=== PATIENT | female | born 1945 | race Caucasian/White ===

== ENCOUNTER 2021-07-10 14:49 | Outpatient (CLI) | payer MEDICARE, SELFPAY ==
--- NOTE | ~2021-07-10 | XR_ITS ---
XR hand RT min 3V DATE: 07/10/2021 15:19 INDICATION: Right first digit pain for 2 weeks. No injury. TECHNIQUE: 3 views COMPARISON: None FINDINGS: There is diffuse osteopenia. There is severe osteoarthritic change and prominent associated spurring at the first carpometacarpal joint. There is osteoarthritic change of multiple metacarpophalangeal and interphalangeal joints. No fracture or dislocation, periosteal reaction or bone destruction is detected. IMPRESSION: Polyarticular osteoarthritis Diffuse osteopenia Reviewed, dictated and finalized at location A.
== END 2021-07-10 14:50 | disposition home or self-care (01) ==
LOC: CHSIMG 14:57
PROVIDERS: PCP Internal Medicine; Visit Provider Internal Medicine
DX: M79.641 Pain in right hand (principal)
CPT/HCPCS: 73130

== ENCOUNTER 2022-05-05 08:47 | Outpatient (CLI) | payer MEDICARE, SELFPAY ==
--- NOTE | ~2022-05-05 | CT_ITS ---
EXAMINATION: CT abdomen pelvis wo/w con DATE: 05/05/2022 09:49 INDICATION: Abdominal and pelvic pain, hematuria. Atypical urethral cells. TECHNIQUE: Computed tomography (CT) of the abdomen and pelvis was performed without and subsequently with 130 CC Omnipaque 350 intravenous contrast. Automated exposure control and iterative reconstructi on technique were employed. Exam dose: 1594.59 mGy-cm total exam DLP. COMPARISON: None. FINDINGS: Minimal atelectasis at the lung bases. Cardiomegaly. No pericardial or pleural effusion. Small sliding hiatal hernia. The gallbladder is presumably surgically absent. No bile duct dilatation. Normal splenic size, with o ccasional calcified splenic granulomas. No pancreatic mass lesion, calcification or ductal dilatation. No bile duct dilatation. Normal morphology of the adrenal glands. 2.5 mm nonobstructing mid left renal calculus. No other urinary tract calculus or hydroureteronephros is. 5 mm left renal cyst. There is irregularity along the posterior wall of the urinary bladder. Given the history of hematuria , cystoscopic correlation and possible biopsy are recommended. Normal caliber of the abdominal aorta. No intraperitoneal or retroperitoneal or pelvic mass lesion or adenopathy or ascites. Diverticulosis of the sigmoid and to a lesser extent descending and transverse colon; no evidence of diverticulitis. The appendix is not visualized. No bowel obstruction, bowel wall thickening, pneumato sis or intraperitoneal free air. There is mild soft tissue infiltration of the mesenteric fat which may represent mild mesenteric infl ammation. Normal caliber of the abdominal aorta. No intraperitoneal or retroperitoneal or pelvic mass lesion or adenopathy or ascites. The uterus and adnexal areas are unremarkable. 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 IMPRESSION: Prominent irregularity along the posterior wall of the urinary bladder; given the history of hematuria, consider cystoscopy and biopsy if necessary 2.5 mm nonobstructing left renal calculus 5 mm left renal cyst Small sliding hiatal hernia Diverticulosis of the colon; no CT evidence of diverticulitis Mild mesenteric fat soft tissue infiltration, which might represent mild inflammation Reviewed, dictated and finalized at Location A. Reviewed, dictated and finalized at location A. IMPRESSION: Prominent irregularity along the posterior wall of the urinary blad jose elias; given the history of hematuria, consider cystoscopy and biopsy if necessar y 2.5 mm nonobstructing left renal calculus 5 mm left renal cyst Small sliding hiatal hernia Diverticulosis of the colon; no CT evidence of diverticulitis Mild mesenteric fat soft tissue infiltration, which might represent mild inflam mation
[2022-05-05 09:15] LABS: Estimated Glomerular Filt Rate > 60
== END 2022-05-05 08:48 | disposition home or self-care (01) ==
LOC: CHSIMG 08:51
PROVIDERS: PCP Internal Medicine; Visit Provider Nurse Practitioner Family
DX: R10.9 Unspecified abdominal pain (principal); R31.9 Hematuria, unspecified
CPT/HCPCS: 74178; Q9967

== ENCOUNTER 2022-05-06 12:43 | Outpatient (CLI) | payer MEDICARE, SELFPAY ==
--- NOTE | ~2022-05-06 | DEXA_ITS ---
Bone Density Report Name: LEONEL DOUGLAS Age: 77 Sex: Female Ethnicity: White Date of : 1945 Indication: postmenopausal; screening for osteoporosis; height loss; Referring Provider: Tino Klein Study: Bone densitometry was performed. Exam Date: May 06, 2022 Accession number: [id number] Bone Density: Region BMD T-score Z-score Classification AP Spine(L1-L4) 0.908 -1.3 1.3 Osteopenia Femoral Neck (Left) 0.492 -3.2 -1.0 Osteoporosis Total Hip (Left) 0.830 -0.9 1.0 Normal Femoral Neck (Right) 0.536 -2.8 -0.6 Osteoporosis Total Hip (Right) 0.721 -1.8 0.1 Osteopenia Femoral Neck Mean 0.514 -3.0 -0.8 Osteoporosis Total Hip Mean 0.776 -1.4 0.6 Osteopenia World Health Organization criteria for BMD impression classify patients as: Normal (T-score at or above -1.0), Osteopenia (T-score between -1.0 and -2.5), or Osteoporosis (T-score at or below -2.5). 10-year Fracture Risk: FRAX not reported because: Some T-score for Spine Total or Hip Total or Femoral Neck at or below -2.5 Clinical Information Provided by Patient: Patient maximum height was 59 Menopause Age: 49 No regular weight bearing exercise Drinks caffeinated beverages Onset of menses at age 12 Number of children 3 Impression: The patient has osteoporosis, based on the Left Femoral Neck T-score. Discussion: INCREASED RISK OF FRACTURE. BONE DENSITY IS UNDESIRABLY LOW AT ONE OR MORE SKELETAL SITES, CONSISTENT WITH POSTMENOPAUSAL OSTEOPOROSIS. This patient's lowest T-score meets the World Health Organization's (WHO) criteria for osteoporosis at one or more sites (T-score -2.5 or below). In untreated patients, the risk of osteoporotic fracture increases approximately two-fold for each 1.0 SD decrease in T-score. Low bone density is not the only risk factor for fracture; also consider factors such as patient's age, frailty or poor health, risk of falling, risk of injury, previous osteoporotic fracture, family history of osteoporosis, cigarette smoking, low body weight, etc. Not everyone with low bone mineral density has osteoporosis; osteomalacia and other metabolic bone disorders should also be considered. Patients who have osteoporosis should be evaluated for specific diseases and conditions (secondary causes) that may cause or contribute to bone loss. The [place] [employer] of Clinical Endocrinologists (AACE) and National Osteoporosis Foundation (NOF) recommend pharmacologic intervention for all postmenopausal women whose T-score is in this range. The patient should follow a healthful lifestyle (good nutrition with adequate calcium and vitamin D, and appropriate weight-bearing exercise). Follow-Up: Consider a repeat BMD and Vertebral Fracture Assessment (VFA) exam in 2 years or sooner if medically necessary, to
--- NOTE | ~2022-05-06 | MM_ITS ---
EXAMINATION: MM screening [facility] BI w joie HISTORY: Screening mammogram TECHNIQUE: Craniocaudal and mediolateral oblique 3-D tomosynthesis images were obtained and synthetic 2-D images were generated. CAD analysis was submitted and interpreted. COMPARISON: 10/24/2016, 05/04/2014 BREAST PARENCHYMAL COMPOSITION: The breasts are almost entirely fatty. FINDINGS: Scattered benign-appearing calcifications are present. There is no suspicious mass, calcifi cation, or architectural distortion to suggest malignancy in either breast. There has been no suspici ous interval change. IMPRESSION: 1. No mammographic evidence of malignancy. 2. Recommend routine screening mammography in one year. BI-RADS Category 2: Benign finding(s). Reviewed, dictated and finalized at location A.
== END 2022-05-06 12:44 | disposition home or self-care (01) ==
LOC: CHSIMG 12:45
PROVIDERS: PCP Internal Medicine; Visit Provider Nurse Practitioner Family
DX: Z78.0 Asymptomatic menopausal state (principal); Z12.31 Encounter for screening mammogram for malignant neoplasm of breast
CPT/HCPCS: 77063; 77067; 77080

== ENCOUNTER 2022-08-05 13:33 | Outpatient (CLI) | payer MEDICARE, SELFPAY ==
--- NOTE | ~2022-08-05 | CT_ITS ---
EXAMINATION: CT abdomen pelvis wo con DATE: 08/05/2022 14:07 INDICATION: Hematuria, nephrolithiasis TECHNIQUE: Computed tomography (CT) of the abdomen and pelvis was performed without intravenous contr ast. The dose-length product (DLP) was 261.16 mGy-cm. Automated exposure control and iterative recons truction technique were employed. COMPARISON: 05/05/2022 FINDINGS: Minimal dependent atelectasis is present in the lung bases. The heart size is normal. There is a small sliding hiatal hernia. The gallbladder is surgically absent. Punctate calcifications in a n otherwise normal spleen likely represent healed granulomatous disease. The pancreas and adrenal gla nds are unremarkable. Nonobstructing stones of the left kidney measure up to 2 mm. No stones are pres ent in the right kidney, ureters, or the bladder. No pathologically enlarged abdominal or pelvic lymp h nodes are identified. There is no free intraperitoneal gas or evidence of bowel obstruction. Coloni c diverticulosis is present without evidence of diverticulitis. There is severe lumbar spondylosis. IMPRESSION: 1. Nonobstructing left nephrolithiasis. Reviewed, dictated and finalized at location A.
--- NOTE | ~2022-08-05 | XR_ITS ---
EXAMINATION: XR abdomen/kub 1V INDICATION: Right renal stone TECHNIQUE: Supine views of the abdomen were obtained on 2 radiographs. COMPARISON: CT of the same date FINDINGS: No urolithiasis is identified. There is moderate volume of colonic stool. The visualized selvin ng bases are clear. Severe lower lumbar spondylosis is noted. There are phleboliths of the pelvis. IMPRESSION: 1. No urolithiasis identified. Reviewed, dictated and finalized at location A.
== END 2022-08-05 13:34 | disposition home or self-care (01) ==
LOC: ANHIMG 13:39
PROVIDERS: PCP Internal Medicine; Visit Provider Nurse Practitioner Family
DX: N20.0 Calculus of kidney (principal)
CPT/HCPCS: 74018; 74176

== ENCOUNTER 2023-07-20 01:39 | Day surgery (SDC) | payer MEDICARE, SELFPAY ==
[2023-07-14 15:13] VITALS: BMI 31.8
--- NOTE | 2023-07-14 15:40 | PC.NURSE ---
Report to the Outpatient Waiting Room, entrance under the green pavilion located off [facility], at time __9:30AM on date __07/20/23 . Planned Procedure Time: __11:30AM . Time changes happen often and if your time is changed the preop area will call you the afternoon before. - You and your visitor will be asked to self-screen and do not enter if you have any COVID symptoms. - A mask is optional within the hospital at this time. Patients may have clear liquids (water, carbonated beverages, clear teas, apple juice) until 3 hours prior to surgery with a maximum of 20 ounces. - No food from midnight until time of surgery. Take the following medications with a SIP of water the morning of surgery: __VERAPAMIL AND ALPRAZOLAM NEEDED DO NOT STOP ANY OF YOUR OTHER PRESCRIPTION MEDICATIONS PRIOR TO SURGERY ?EXCEPT THE FOLLOWING Medications to discontinue per physician __HOLD ASPIRIN FOR 7 DAYS PRE-OP PER DR CHESTER- LAST DOSE-07/13/23 Please no make-up, nail slovenian, hairspray, perfume, deodorant, or body powder the day of surgery. No jewelry (including any body piercings) or valuables the day of surgery, leave them at home. Please take a shower or bath the night before, or the morning of, surgery with an antibacterial soap. Wear comfortable, loose fitting clothing. - Jewelry must be removed prior to entering the operating room. Rings and piercings that are not removed may be cut off. - The hospital will not accept responsibility for valuables. - Please leave all valuables, including medications, at home the day of surgery. If you are going home after surgery, a licensed horse and wagon driver must drive you home. - NO public transportation without another adult if you receive anesthesia. - We recommend that an adult stay with you for 24 hours following discharge. - We also recommend that you do not drive, make important decision, drink alcoholic beverages, or take any drugs that were not prescribed by your health care provider for at least 24 hours after your discharge time. Follow any additional instructions given to you from your surgeon. If you or anyone in your household have experienced Covid symptoms in the past week, please notify your surgeon or the nurse liaison at the phone number below for possible testing. Telephone instructions given to _PATIENT and asked if any additional questions and then verbalized understanding. Patient advised to call surgeon office or pre surgery nurse liaison [phone] if any additional questions.
--- NOTE | 2023-07-17 10:48 | PM.IMHP ---
H&P: HPI History of Present Illness Date/Time: 07/17/23 10:48 Chief Complaint: Hunner's ulcer Narrative: This will with Aloner's ulcerations and history of TA high-grade bladder cancer. Her last surveillance cystoscopy was negative for cancer. She continues to have diffuse bladder irritation consistent with ulceration. I spoke with her urologic oncologist and he feels that cancer has been ruled out and that she would benefit from steroid injection for her bladder inflammatory condition Review of Systems Review of Systems: All systems reviewed & are unremarkable except as noted in HPI and below PMFSH Social History Social History Smoking status: Never smoker Alcohol intake: current Substance use: never Living arrangements: with family Additional living arrangements comments: HUSB Spiritual care concerns: No Meds Home Medications and Allergies Home Medications Medication Instructions Recorded Confirmed Type alendronate 70 mg tablet 70 mg PO WEEKLY 07/14/23 07/14/23 History alprazolam 1 mg tablet 1 mg PO BID PRN Anxiety 07/14/23 07/14/23 History aspirin 325 mg tablet 325 mg PO DAILY PRN Headache 07/14/23 07/14/23 History verapamil 180 mg tablet,extended 180 mg PO QAM 07/14/23 07/14/23 History release Allergies Allergy/AdvReac Type Severity Reaction Status Date / Time latex Allergy Itching, Verified 07/14/23 15:09 HIVES Exam Narrative: No acute distress Normal breathing Alert orient x3 Assessment and Plan Assessment and plan (1) 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 She understands risks of bleeding, infection, damage to the urinary tract. I spoke with her urologic oncologist. He feels that she is bladder cancer free. I did discuss the theoretical risk of seeding cancer cells into the deeper bauman of her bladder with an injection procedure.
--- NOTE | 2023-07-20 07:16 | WPDHPUPDATE1 ---
History and Physical Update Update Date/Time: 07/20/23 07:16 History and Physical has been reviewed, including an updated exam of the patient. There are NO changes in the patient's condition. Risks, benefits, and alternatives have been discussed and questions answered. Patient agrees to proceed with procedure.
[2023-07-20 10:00] VITALS: BP 151/70; PULSE 71; RESP 16; TEMP 35.9; O2SAT 98
[2023-07-20] MEDS: LACTATED RINGERS 1,000 ML 30 ML IV CONT (10:00)
--- NOTE | 2023-07-20 10:15 | WPDANESEPPF ---
Anes - Initial Pre Proc Eval Procedure: Operation Date: 07/20/23 11:30 Proposed Procedures p Cystoscopy Bladder Biopsy with Steroid Injection - Brandon Royal MD Date/Time: 07/20/23 10:15 Surgeon: Brandon Royal MD Pre Op Diagnosis: hypervascular lesion of urinary bladder Patient Data Age: 78 Gender: F Height: 1.47 m Weight: 69 kg Allergies Allergy/AdvReac Type Severity Reaction Status Date / Time latex Allergy Itching, Verified 07/14/23 15:09 HIVES Home Medications Medication Instructions Recorded Confirmed Type alendronate 70 mg tablet 70 mg PO WEEKLY 07/14/23 07/14/23 History alprazolam 1 mg tablet 1 mg PO BID PRN Anxiety 07/14/23 07/14/23 History aspirin 325 mg tablet 325 mg PO DAILY PRN Headache 07/14/23 07/14/23 History verapamil 180 mg tablet,extended 180 mg PO QAM 07/14/23 07/14/23 History release Patient hx anesthesia problems: none Family hx anesthesia problems: none Results Review: All pre-operative results and documents have been reviewed as part of the pre-operative evaluation. [facility] Past Medical History Medical History (Updated 07/20/23 @ 10:15 by Temo Garcia MD) Bladder cancer HTN (hypertension) Obesity BONITA (obstructive sleep apnea) Social History Social History Smoking status: Never smoker Alcohol intake: current Substance use: never Living arrangements: with family Additional living arrangements comments: HUSB Spiritual care concerns: No Anes - Eval Final PreProcedure Day of Procedure 07/20/23 10:15 Patient weight: obese Heart: regular rate and rhythm Lungs: clear to auscultation Airway: Mallampati scale class II Neurological: alert and oriented Last oral intake: >/= 8 hours ASA classification: III Emergent: no Anesthetic plan: proceed Anesthesia type and monitoring: general GIVS and standard monitoring Results Review: All pre-operative results and documents have been reviewed as part of the pre-operative evaluation. Informed Consent: The patient's anesthetic plan and its attendant risks and benefits were discussed with the patient/family/POA. Questions were solicited and answers provided to the satisfaction of the patient/family/POA.
[2023-07-20] MEDS: ceFAZolin 2 GM/D5W 50 ML 2 GM/50 ML BAG IVPB (10:37)
[2023-07-20] MEDS: LIDOCAINE HCL 2% GEL UROJET 10 ML PKG MUCOUS MEM (10:53)
[2023-07-20] MEDS: TRIAMCINOLONE ACET INJ 40 MG/ML VIAL 200 MG IM (10:54)
--- NOTE | 2023-07-20 11:06 | P.OP_ITS ---
Procedure Note - Detailed Date of Procedure 07/20/23 Pre-op Diagnosis hypervascular lesion of urinary bladder Post-op Diagnosis Same Procedure Performed Cystoscopy with bladder biopsy. Injection of steroid Surgeon Brandon Royal MD Speech Professor None Anesthesia MAC and Local (Lidocaine jelly Uro jet) Indications This along with symptoms and signs consistent with Hunner's ulcer variety interstitial cystitis. She has a history of bladder cancer as well. She is currently no evidence of disease in terms of bladder cancer. Her urologic oncologist asked me to discuss performing a cystoscopy with steroid injection for her Hunner's ulcerations. She understands risks of bleeding, infection, damage to bladder urinary tract, inability to resolve her symptoms, the theoretical risk of seeding bladder cancer into the deeper layers of her bladder. She agreed to proceed Findings Hunner's ulceration posterior wall Description of Procedure She was correctly identified. Informed consent obtained. She from the operating room. She was given MAC anesthesia. She was placed in dorsal thigh position. She was prepped and draped sterile fashion. Time-out performed. Cystoscopy revealed a low capacity dysmorphic bladder. She had areas of inflammation on the posterior wall of the bladder. These areas remote from the ureteral orifice. I biopsied this area at the posterior wall. It was the main area of inflammation. It did not seem to be consistent with bladder cancer visually. i then fulgurated the lesion. I then injected steroids. 2 mg of Kenalog total at a concentration of 40 mg per mL. I then fulgurated the injection sites to make sure hemostasis was controlled. I confirmed the all fulguration was done away from the ureters. There is no bleeding or low insufflation pressures. She was awakened transferred to PACU in stable condition. Implants None Estimated Blood Loss 2 Pathology Yes (Bladder biopsy) Complications No immediate complications Condition Stable Disposition PACU
[2023-07-20 11:09] VITALS: BP 128/61; PULSE 72; RESP 12; O2SAT 100
[2023-07-20 11:35] VITALS: BP 127/92; PULSE 66; RESP 18; O2SAT 100
[2023-07-20 12:05] VITALS: BP 130/75; PULSE 59; RESP 16
--- NOTE | 2024-08-08 08:07 | PC.NURSE ---
Report to the Outpatient Waiting Room, entrance under the green pavilion located off [facility], at time __645AM on date _08/12/24 . Planned Procedure Time: _845_AM .? Time changes happen often and if your time is changed the preop area will call you the afternoon before. - You and your visitor will be asked to self-screen and do not enter if you have any COVID symptoms. Please call surgeon if you need to reschedule. - A mask is optional within the hospital at this time. Patients may have clear liquids (water, carbonated beverages, clear teas, apple juice) until 3 hours prior to surgery( 5:45 AM) with a maximum of 20 ounces. - No food from midnight until time of surgery and no smoking - Infants may have breast milk until 4 hours before surgery, infant formula 6 hours prior to surgery. - Children will be allowed to drink immediately following surgery.? If applicable, please bring a bottle or sippy cup to assist with drinking. Juice, water, soda, and popsicles are readily available.? For infants on formula, please bring formula the day of surgery.? Pacifiers are allowed. Take only the following medications with a SIP of water on the morning of surgery: _ALPRAZOLAM IF NEEDED DO NOT STOP ANY OF YOUR OTHER PRESCRIPTION MEDICATIONS PRIOR TO SURGERY EXCEPT THE FOLLOWING Medications to discontinue per physician ___PT STATES HOLD ASPIRIN 7 DAYS PRE OP PER DR CHESTER.LAST DOSE 08/05/24 Please no make-up, nail chinese, hairspray, perfume, deodorant, or body powder the day of surgery.? No jewelry (including any body piercings) or valuables the day of surgery, leave them at home.? Please take a shower or bath the night before, or the morning of, surgery with an antibacterial soap.? Wear comfortable, loose fitting clothing.? Children are encouraged to wear pajamas. - Jewelry must be removed prior to entering the operating room.? Rings and piercings that are not removed may be cut off. - The hospital will not accept responsibility for valuables.? - Please leave all valuables, including medications, at home the day of surgery. If you are going home after surgery, a licensed driver supervisor must drive you home.? - NO public transportation without another adult if you receive anesthesia. - We recommend that an adult stay with you for 24 hours following discharge. - We also recommend that you do not drive, make important decision, drink alcoholic beverages, or take any drugs that were not prescribed by your health care provider for at least 24 hours after your discharge ti Follow any additional instructions given to you from your surgeon. Telephone instructions given to __PATIENT and asked if any additional questions and then verbalized understanding. Patient advised to call surgeon office or pre surgery nurse liaison [phone] if any additional questions.
== END 2023-07-20 12:22 | disposition home or self-care (01) ==
PROVIDERS: PCP Internal Medicine; Visit Provider Urology
PROC: 0TBB8ZX Excision of Bladder, Via Natural or Artificial Opening Endoscopic, Diagnostic (ICD-10-PCS; CPT 52204; principal; 2023-07-20 11:30)
DX: N30.10 Interstitial cystitis (chronic) without hematuria (principal); Z85.51 Personal history of malignant neoplasm of bladder; I10 Essential (primary) hypertension; G47.33 Obstructive sleep apnea (adult) (pediatric); E66.9 Obesity, unspecified; Z68.31 Body mass index [BMI] 31.0-31.9, adult; Z79.82 Long term (current) use of aspirin
CPT/HCPCS: 52204; 52283; 88305; C1758; C1769; J0690; J2704; J3010; J3301; J7120

== ENCOUNTER 2023-12-15 09:36 | Outpatient (CLI) | payer MEDICARE, SELFPAY | END 2023-12-15 09:37 | disposition home or self-care (01) | LOC: ANHSURGERY 09:43 | PROVIDERS: PCP Internal Medicine; Visit Provider Urology | DX: N30.10 Interstitial cystitis (chronic) without hematuria (principal); Z01.818 Encounter for other preprocedural examination | CPT/HCPCS: 87077; 87086; 87186 ==

== ENCOUNTER 2023-12-21 03:13 | Day surgery (SDC) | payer MEDICARE, SELFPAY ==
--- NOTE | 2023-12-07 15:06 | PC.NURSE ---
Report to the Outpatient Waiting Room, entrance under the green pavilion located off [facility], at time __0900 on date __12/21/23 . Planned Procedure Time: _1100 . Time changes happen often and if your time is changed the preop area will call you the afternoon before. - You and your visitor will be asked to self-screen and do not enter if you have any COVID symptoms. - A mask is optional within the hospital at this time. Patients may have clear liquids (water, carbonated beverages, clear teas, apple juice) until 3 hours prior to surgery ( 8:00 AM)with a maximum of 20 ounces. - No food from midnight until time of surgery - Infants may have breast milk until 4 hours before surgery, formula 6 hours prior to surgery. - Children will be allowed to drink immediately following surgery. If applicable, please bring a bottle or sippy cup to assist with drinking. Juice, water, soda, and popsicles are readily available. For infants on formula, please bring formula the day of surgery. Pacifiers are allowed. Take the following medications with a SIP of water the morning of surgery: ___VERAPAMIL, ALPRAZOLAM DO NOT STOP ANY OF YOUR OTHER PRESCRIPTION MEDICATIONS PRIOR TO SURGERY ?EXCEPT THE FOLLOWING Medications to discontinue per physician HOLD ASPIRIN 7 DAYS PRE OP PER DR CHESTER .LAST DOSE 12/13/23 Please no make-up, nail jamaican, hairspray, perfume, deodorant, or body powder the day of surgery. No jewelry (including any body piercings) or valuables the day of surgery, leave them at home. Please take a shower or bath the night before, or the morning of, surgery with an antibacterial soap. Wear comfortable, loose fitting clothing. Children are encouraged to wear pajamas. - Jewelry must be removed prior to entering the operating room. Rings and piercings that are not removed may be cut off. - The hospital will not accept responsibility for valuables. - Please leave all valuables, including medications, at home the day of surgery. If you are going home after surgery, a licensed tour bus driver must drive you home. - NO public transportation without another adult if you receive anesthesia. - We recommend that an adult stay with you for 24 hours following discharge. - We also recommend that you do not drive, make important decision, drink alcoholic beverages, or take any drugs that were not prescribed by your health care provider for at least 24 hours after your discharge time. Follow any additional instructions given to you from your surgeon. If you or anyone in your household have experienced Covid symptoms in the past week, please notify your surgeon or the nurse liaison at the phone number below for possible testing. Telephone instructions given to ___PATIENT and asked if any additional questions and then verbalized understanding. Patient advised to call surgeon office or pre surgery nurse liaison [phone] if any additional questions.
[2023-12-07 15:17] VITALS: BMI 33.2
--- NOTE | 2023-12-13 09:43 | PM.IMHP ---
H&P: HPI History of Present Illness Date/Time: 12/13/23 09:43 Chief Complaint: hunner ulcer Narrative: ready for another steroid injection Review of Systems Review of Systems: All systems reviewed & are unremarkable except as noted in HPI and below PMFSH Past Medical History Medical History Bladder cancer HTN (hypertension) Obesity BOINTA (obstructive sleep apnea) Social History Social History Smoking status: Never smoker Alcohol intake: current Substance use: never Living arrangements: with family Additional living arrangements comments: HUSB Spiritual care concerns: No Meds Home Medications and Allergies Home Medications Medication Instructions Recorded Confirmed Type alendronate 70 mg tablet 70 mg PO MONTHLY 07/14/23 12/07/23 History alprazolam 1 mg tablet 1 mg PO BID PRN Anxiety 07/14/23 12/07/23 History aspirin 325 mg tablet 325 mg PO DAILY PRN Headache 07/14/23 12/07/23 History verapamil 180 mg tablet,extended 180 mg PO QAM 07/14/23 12/07/23 History release tramadol 50 mg tablet 50 mg PO Q6H PRN pain #20 tabs 07/20/23 12/07/23 Rx acetaminophen 500 mg capsule 500 mg PO Q6H PRN Pain 12/07/23 12/07/23 History amitriptyline 10 mg tablet 10 mg PO HS 12/07/23 12/07/23 History Allergies Allergy/AdvReac Type Severity Reaction Status Date / Time latex Allergy Itching, Verified 12/07/23 14:52 HIVES Exam Narrative: NAD normal breathing A+) x3 Assessment and Plan Assessment and plan (1) 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
--- NOTE | 2023-12-21 07:15 | WPDHPUPDATE1 ---
History and Physical Update Update Date/Time: 12/21/23 07:15 History and Physical has been reviewed, including an updated exam of the patient. There are NO changes in the patient's condition. Risks, benefits, and alternatives have been discussed and questions answered. Patient agrees to proceed with procedure.
[2023-12-21 09:08] VITALS: BP 148/70; PULSE 74; RESP 18; TEMP 36.4; O2SAT 99
[2023-12-21] MEDS: LACTATED RINGERS 1,000 ML 30 ML IV CONT (09:30)
--- NOTE | 2023-12-21 09:33 | P.PNAN_ITS ---
Anes - Initial Pre Proc Eval Procedure: Operation Date: 12/21/23 11:00 Proposed Procedures p Cystoscopy, Bladder Biopsy, Steroid Injection - Brandon Royal MD Date/Time: 12/21/23 09:33 Surgeon: Brandon Royal MD Pre Op Diagnosis: hunners ulcer Patient Data Age: 78 Gender: F Height: 1.47 m Weight: 71.8 kg Last Vital Signs Temp 36.4 C L 12/21/23 09:08 Pulse 74 12/21/23 09:08 Resp 18 12/21/23 09:08 BP 148/70 H 12/21/23 09:08 Pulse Ox 99 12/21/23 09:08 O2 Del Method Room Air 12/21/23 09:08 Allergies Allergy/AdvReac Type Severity Reaction Status Date / Time latex Allergy Itching, Verified 12/21/23 09:19 HIVES Home Medications Medication Instructions Recorded Confirmed Type alendronate 70 mg tablet 70 mg PO MONTHLY 07/14/23 12/21/23 History alprazolam 1 mg tablet 1 mg PO BID PRN Anxiety 07/14/23 12/21/23 History aspirin 325 mg tablet 325 mg PO DAILY PRN Headache 07/14/23 12/21/23 History verapamil 180 mg tablet,extended 180 mg PO QAM 07/14/23 12/21/23 History release tramadol 50 mg tablet 50 mg PO Q6H PRN pain #20 tabs 07/20/23 12/21/23 Rx acetaminophen 500 mg capsule 500 mg PO Q6H PRN Pain 12/07/23 12/21/23 History amitriptyline 10 mg tablet 10 mg PO HS 12/07/23 12/21/23 History sulfamethoxazole 800 1 tablet PO BID 12/21/23 12/21/23 History mg-trimethoprim 160 mg tablet Patient hx anesthesia problems: none Family hx anesthesia problems: none Results Review: All pre-operative results and documents have been reviewed as part of the pre- operative evaluation. [facility] Past Medical History Medical History Bladder cancer HTN (hypertension) Obesity BONITA (obstructive sleep apnea) Social History Social History Smoking status: Never smoker Alcohol intake: current Substance use: never Living arrangements: with family Additional living arrangements comments: HUSB Spiritual care concerns: No Anes - Eval Final PreProcedure Day of Procedure 12/21/23 09:33 Patient weight: obese Heart: regular rate and rhythm Lungs: clear to auscultation Airway: Mallampati scale class II Neurological: alert and oriented Last oral intake: >/= 8 hours ASA classification: III Emergent: no Anesthetic plan: proceed Anesthesia type and monitoring: general GIVS and standard monitoring Results Review: All pre-operative results and documents have been reviewed as part of the pre- operative evaluation. Informed Consent: The patient's anesthetic plan and its attendant risks and benefits were discussed with the patient/family/POA. Questions were solicited and answers provided to the satisfaction of the patient/family/POA.
[2023-12-21] MEDS: ceFAZolin 2 GM/D5W 50 ML 2 GM/50 ML BAG IVPB (10:24)
[2023-12-21] MEDS: LIDOCAINE HCL 2% GEL UROJET 10 ML PKG MUCOUS MEM (10:32)
[2023-12-21] MEDS: TRIAMCINOLONE ACET INJ 40 MG/ML VIAL 200 MG XX (10:40)
--- NOTE | 2023-12-21 10:43 | W.PM.PROC2 ---
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 She has had repeat steroid injections in the past. They have always worked well for her bladder pain symptoms. She does have remote history of bladder cancer. She has had no recurrences. The procedure has been cleared by her urologic oncologist. there is a small risk of progression of bladder cancer from the procedure Findings area of Hunner's ulceration posterior wall of bladder. Description of Procedure she was correctly identified. Informed consent obtained. From the operating room. She was given MAC anesthesia. Uro jet was applied. She was prepped draped sterile fashion. Given appropriate perioperative antibiotics. Time-out performed. Cystoscopy revealed a dysmorphic bladder with trabeculations. There was an area of ulceration on the posterior wall. Right ureter was easily identified. Left ureter is occult. I biopsied this area. It was remote from any expected place of ureteral orifice. I gently fulgurated the biopsy site. I then injected my steroids. 200 mg total of Kenalog. There was no bleeding from the injection sites. The bladder was drained. She was awakened transferred to PACU in stable condition. Estimated Blood Loss 1 Pathology Yes ( Bladder biopsy) Complications No immediate complications Condition Stable Disposition PACU
[2023-12-21 10:46] VITALS: BP 111/57; PULSE 76; RESP 12; O2SAT 94
[2023-12-21 11:15] VITALS: BP 154/62; PULSE 57; RESP 14
[2023-12-21 11:45] VITALS: BP 149/55; PULSE 56; RESP 14
== END 2023-12-21 12:05 | disposition home or self-care (01) ==
PROVIDERS: PCP Internal Medicine; Visit Provider Urology
PROC: 0TBB8ZX Excision of Bladder, Via Natural or Artificial Opening Endoscopic, Diagnostic (ICD-10-PCS; CPT 52204; principal; 2023-12-21 11:00)
DX: N30.10 Interstitial cystitis (chronic) without hematuria (principal); I10 Essential (primary) hypertension; G47.33 Obstructive sleep apnea (adult) (pediatric); E66.9 Obesity, unspecified; Z68.33 Body mass index [BMI] 33.0-33.9, adult; Z79.82 Long term (current) use of aspirin; Z79.891 Long term (current) use of opiate analgesic; Z79.83 Long term (current) use of bisphosphonates; Z85.51 Personal history of malignant neoplasm of bladder
CPT/HCPCS: 52204; 52283; 87077; 87086; 87186; 88305; J0690; J2405; J3010; J3301; J7120

== ENCOUNTER 2024-08-09 10:56 | Outpatient (CLI) | payer MEDICARE, SELFPAY | END 2024-08-09 10:57 | disposition home or self-care (01) | PROVIDERS: PCP Internal Medicine; Visit Provider Urology | DX: N32.9 Bladder disorder, unspecified (principal); Z01.818 Encounter for other preprocedural examination | CPT/HCPCS: 87086 ==

== ENCOUNTER 2024-08-12 00:17 | Day surgery (SDC) | payer MEDICARE, SELFPAY ==
--- NOTE | 2024-08-07 17:24 | PM.IMHP ---
H&P: HPI History of Present Illness Date/Time: 08/07/24 17:24 Chief Complaint: hunner ulcer Narrative: ready for another steroid injection Review of Systems Review of Systems: All systems reviewed & are unremarkable except as noted in HPI and below PMFSH Past Medical History Medical History Bladder cancer HTN (hypertension) Obesity BONITA (obstructive sleep apnea) Social History Social History Smoking status: Never smoker Alcohol intake: current Substance use: never Living arrangements: with family Additional living arrangements comments: HUSB Spiritual care concerns: No Meds Home Medications and Allergies Home Medications Medication Instructions Recorded Confirmed Type alendronate 70 mg tablet 70 mg PO MONTHLY 07/14/23 12/21/23 History alprazolam 1 mg tablet 1 mg PO BID PRN Anxiety 07/14/23 12/21/23 History aspirin 325 mg tablet 325 mg PO DAILY PRN Headache 07/14/23 12/21/23 History verapamil 180 mg tablet,extended 180 mg PO QAM 07/14/23 12/21/23 History release tramadol 50 mg tablet 50 mg PO Q6H PRN pain #20 tabs 07/20/23 12/21/23 Rx acetaminophen 500 mg capsule 500 mg PO Q6H PRN Pain 12/07/23 12/21/23 History amitriptyline 10 mg tablet 10 mg PO HS 12/07/23 12/21/23 History sulfamethoxazole 800 1 tablet PO BID 12/21/23 12/21/23 History mg-trimethoprim 160 mg tablet tramadol 50 mg tablet 50 mg PO Q6H PRN pain #20 tabs 12/21/23 Rx Allergies Allergy/AdvReac Type Severity Reaction Status Date / Time latex Allergy Itching, Verified 12/21/23 09:19 HIVES Exam Narrative: NAD A+O x3 Assessment and Plan Assessment and plan (1) 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
[2024-08-08 08:18] VITALS: BMI 33.4
--- NOTE | 2024-08-10 09:18 | PC.NURSE ---
Report to the Outpatient Waiting Room, entrance under the green pavilion located off [facility], at time _0645 on date 08/12/24 . Planned Procedure Time: 0845 .? Time changes happen often and if your time is changed the preop area will call you the afternoon before. - You and your visitor will be asked to self-screen and do not enter if you have any COVID symptoms. Please call surgeon if you need to reschedule. - A mask is optional within the hospital at this time. Patients may have clear liquids (water, carbonated beverages, clear teas, apple juice) until 3 hours prior to surgery(0545) with a maximum of 20 ounces. - No food from midnight until time of surgery and no smoking - Infants may have breast milk until 4 hours before surgery, infant formula 6 hours prior to surgery. - Children will be allowed to drink immediately following surgery.? If applicable, please bring a bottle or sippy cup to assist with drinking. Juice, water, soda, and popsicles are readily available.? For infants on formula, please bring formula the day of surgery.? Pacifiers are allowed. Take only the following medications with a SIP of water on the morning of surgery: __ALPRAZOLAM IF NEEDED FOR ANXIETY DO NOT STOP ANY OF YOUR OTHER PRESCRIPTION MEDICATIONS PRIOR TO SURGERY EXCEPT THE FOLLOWING Medications to discontinue per physician __PT STATES _HOLD ASPIRIN PER DR CHESTER__STATES LAST DOSE 08/06/24 Date to take last dose Please no make-up, nail peruvian, hairspray, perfume, deodorant, or body powder the day of surgery.? No jewelry (including any body piercings) or valuables the day of surgery, leave them at home.? Please take a shower or bath the night before, or the morning of, surgery with an antibacterial soap.? Wear comfortable, loose fitting clothing.? Children are encouraged to wear pajamas. - Jewelry must be removed prior to entering the operating room.? Rings and piercings that are not removed may be cut off. - The hospital will not accept responsibility for valuables.? - Please leave all valuables, including medications, at home the day of surgery. If you are going home after surgery, a licensed log truck driver must drive you home.? - NO public transportation without another adult if you receive anesthesia. - We recommend that an adult stay with you for 24 hours following discharge. - We also recommend that you do not drive, make important decision, drink alcoholic beverages, or take any drugs that were not prescribed by your health care provider for at least 24 hours after your discharge time. For Pediatric surgeries, we recommend two adults accompany the child home. Follow any additional instructions given to you from your surgeon. Telephone instructions given to _PATIENT and asked if any additional questions and then verbalized understanding. Patient advised to call surgeon office or pre surgery nurse liaison [phone] if any additional questions.
--- NOTE | 2024-08-11 14:19 | P.PNAN_ITS ---
Anes - Initial Pre Proc Eval Procedure: Operation Date: 08/12/24 08:45 Proposed Procedures p Cystoscopy, Bladder Biopsy with Steroid Injection - Brandon Royal MD Date/Time: 08/11/24 14:19 Surgeon: Brandon Royal MD Pre Op Diagnosis: hyper lesion of bladder Patient Data Age: 79 Gender: F Height: 1.47 m Weight: 72.6 kg Allergies Allergy/AdvReac Type Severity Reaction Status Date / Time latex Allergy Itching, Verified 08/08/24 07:55 HIVES Home Medications Medication Instructions Recorded Confirmed Type alendronate 70 mg tablet 70 mg PO MONTHLY 07/14/23 08/08/24 History alprazolam 1 mg tablet 1 mg PO BID PRN Anxiety 07/14/23 08/08/24 History aspirin 325 mg tablet 325 mg PO DAILY PRN Headache 07/14/23 08/08/24 History acetaminophen 500 mg capsule 500 mg PO Q6H PRN Pain 12/07/23 08/08/24 History amitriptyline 10 mg tablet 10 mg PO HS 12/07/23 08/08/24 History mirabegron 25 mg tablet,extended 25 mg PO DAILY 08/08/24 08/08/24 History release 24 hr (Myrbetriq) Patient hx anesthesia problems: none Family hx anesthesia problems: none Results Review: All pre-operative results and documents have been reviewed as part of the pre- operative evaluation. [facility] Past Medical History Medical History (Updated 08/11/24 @ 14:22 by Ankit Jones DO) Bladder cancer CVA (cerebral vascular accident) 2000 HTN (hypertension) Obesity BONITA (obstructive sleep apnea) Social History Social History Smoking status: Never smoker Alcohol intake: current Substance use: never Living arrangements: with family Additional living arrangements comments: HUSB Spiritual care concerns: No Anes - Eval Final PreProcedure Day of Procedure 08/11/24 14:19 Patient weight: obese Heart: regular rate and rhythm Lungs: clear to auscultation Airway: Mallampati scale class II Neurological: alert and oriented Last oral intake: >/= 8 hours ASA classification: III Emergent: no Anesthetic plan: proceed Anesthesia type and monitoring: general GIVS and standard monitoring Results Review: All pre-operative results and documents have been reviewed as part of the pre- operative evaluation. Informed Consent: The patient's anesthetic plan and its attendant risks and benefits were discussed with the patient/family/POA. Questions were solicited and answers provided to the satisfaction of the patient/family/POA.
--- NOTE | 2024-08-12 04:21 | WPDHPUPDATE1 ---
History and Physical Update Update Date/Time: 08/12/24 04:21 History and Physical has been reviewed, including an updated exam of the patient. There are NO changes in the patient's condition. Risks, benefits, and alternatives have been discussed and questions answered. Patient agrees to proceed with procedure.
[2024-08-12 07:15] VITALS: BP 151/65; PULSE 65; RESP 14; TEMP 36.3; O2SAT 98
[2024-08-12] MEDS: LACTATED RINGERS 1,000 ML 30 ML IV CONT (07:15)
[2024-08-12] MEDS: ceFAZolin 2 GM/D5W 50 ML 2 GM/50 ML BAG IVPB (08:27)
[2024-08-12] MEDS: LIDOCAINE HCL 2% GEL UROJET 10 ML PKG MUCOUS MEM (08:47)
--- NOTE | 2024-08-12 08:51 | W.PM.PROC2 ---
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 She also has a history of bladder cancer. She has not had recurrence in some time. She is here today for a steroid injection for her Hunner's ulceration as her symptoms have recurred. She understands risks of bleeding, infection, lack of efficacy, need for repeat procedures, damage to the urinary tract. She agrees to proceed Findings Area of irritation consistent with Hunner's ulceration left lateral wall of bladder. Away from ureteral orifice Description of Procedure She is correctly identified. Informed consent obtained. From the operating room. She was given monitored anesthesia care. She was placed in dorsal lithotomy position. She was prepped and draped sterile fashion. Time-out was performed. On cystoscopy she had a dysmorphic bladder. Very small capacity. Right ureteral orifice is normal. Left ureteral orifice was hard to identify but eventually was discovered near the site of her old bladder tumor resection on a scar. It was high up on the bladder and deviated toward the midline. There is no signs of any bladder tumor. She had a reddened area consistent with Hunner's ulceration left lateral wall. This was gently biopsied. I fulgurated the biopsy site. I then injected Kenalog 5 cc total a concentration of 40 mg per male. I injected this into the ulcerated area. I fulgurated the bleeding site from the needle. Again all fulguration was done away from the orifice. Her bladder was examined under low insufflation pressures. There was no bleeding. She was awakened transferred to PACU in stable condition. Implants None Estimated Blood Loss 1 Pathology Yes (Bladder biopsy) Complications No immediate complications Condition Stable Disposition PACU
[2024-08-12 08:52] VITALS: BP 118/67; PULSE 82; RESP 16; O2SAT 98
[2024-08-12] MEDS: TRIAMCINOLONE ACET INJ 40 MG/ML VIAL 200 MG IM (08:55)
[2024-08-12 09:20] VITALS: BP 138/68; PULSE 63; RESP 16; O2SAT 97
[2024-08-12 09:50] VITALS: BP 145/71; PULSE 66; RESP 16
== END 2024-08-12 10:00 | disposition home or self-care (01) ==
PROVIDERS: PCP Internal Medicine; Visit Provider Urology
PROC: 0TBB8ZX Excision of Bladder, Via Natural or Artificial Opening Endoscopic, Diagnostic (ICD-10-PCS; CPT 52204; principal; 2024-08-12 08:45)
DX: N30.20 Other chronic cystitis without hematuria (principal); R59.0 Localized enlarged lymph nodes; I10 Essential (primary) hypertension; G47.33 Obstructive sleep apnea (adult) (pediatric); E66.9 Obesity, unspecified; Z68.34 Body mass index [BMI] 34.0-34.9, adult; Z79.82 Long term (current) use of aspirin; Z79.891 Long term (current) use of opiate analgesic; Z85.51 Personal history of malignant neoplasm of bladder; Z86.79 Personal history of other diseases of the circulatory system
CPT/HCPCS: 52204; 52283; 87086; 88305; J0690; J2003; J2704; J3301; J7120

== ENCOUNTER 2024-09-28 11:45 | Outpatient (CLI) | payer MEDICARE, SELFPAY | END 2024-09-28 11:46 | disposition home or self-care (01) | PROVIDERS: PCP Internal Medicine; Visit Provider Urology | DX: C67.8 Malignant neoplasm of overlapping sites of bladder (principal); R10.9 Unspecified abdominal pain | CPT/HCPCS: 87086; 87088 ==

== ENCOUNTER 2024-10-11 11:30 | Outpatient (CLI) | payer MEDICARE, SELFPAY ==
--- NOTE | ~2024-10-11 | XR_ITS ---
EXAMINATION: XR chest 2V 10/11/2024 11:59 INDICATION: Bladder cancer PROCEDURE: 2 view chest COMPARISON: 06/05/2017 FINDINGS: The lungs are clear. The cardiomediastinal silhouette is within normal limits. There are no pleural effusions. There is no pneumothorax suspected. IMPRESSION: 1: NO ACUTE CARDIOPULMONARY DISEASE. Reviewed, dictated and finalized at location B. MATIC FOLDER SEAMER
== END 2024-10-11 11:31 | disposition home or self-care (01) ==
PROVIDERS: PCP Internal Medicine; Visit Provider Urology
DX: C67.8 Malignant neoplasm of overlapping sites of bladder (principal)
CPT/HCPCS: 71046

== ENCOUNTER 2024-12-21 12:28 | Outpatient (CLI) | payer MEDICARE, SELFPAY ==
--- NOTE | ~2024-12-21 | XR_ITS ---
EXAMINATION: XR wrist LT min 3V DATE: 12/21/2024 12:40 INDICATION: Distal left radius fracture. TECHNIQUE: 3 views of left wrist were obtained. COMPARISON: Left wrist radiographs 11/20/2024 FINDINGS: Alignment is normal. There is a nondisplaced fracture of radial styloid. 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 Cast material obscures fine bone detail. IMPRESSION: 1. Nondisplaced fracture of radial styloid. Reviewed, dictated and finalized at location A. [employer]ES
--- OUTSIDE RECORDS SUMMARY | 2024-12-21 14:01 | XMS_ITS | Clinical Summary ---
Author Organization [facility] Address [address] [place] [address] Care Team Providers Care Clay Transporter Name Role Phone Tino Klein MD Unavailable [phone] None, Provider MD Primary Care Provider Unavaila ble Allergies Active Allergy Reactions Criticality Noted Date Comments Latex Hives High 05/25/2023 Reaction: HIVES when she wears latex gloves. Says she can tolerate balloons. Medications ALPRAZolam (XANAX) 1 MG tablet Take 1 tablet (1 mg total) by mouth 2 (two) times daily as needed. Active verapamil (CALAN SR) 180 MG ER tablet Take 1 tablet (180 mg total) by mouth 2 (two) times daily. Active acetaminophen (TYLENOL) 500 MG tablet Take 2 tablets (1,000 mg total) by mouth every 6 (six) hours as needed for Pain. Active albuterol sulfate HFA 108 (90 Base) MCG/ACT inhaler Inhale 2 puffs into the lungs every 6 (six) hours as needed. Active Active Problems No known active problems Immunizations Name Administration Dates Next Due MODERNA COVID-19 (12+) MRNA, LNP-S, PF, 100 MCG/ 0.5 ML DOSE 02/01/2021,01/02/2021 PFIZER COVID-19 (ORIGINAL FO RMULATION, PURPLE CAP) mRNA, LNP-S, PF, 30 MCG/0.3 ML DOSE 09/26/2021 Family History Medical History Relation Comments Cancer Father prostate cancer Heart Disease Father Prostate Cancer Father Cancer Sister 1 Colon Cancer Sister 1 Diabetes Sister 2 Relation Status Comments Daughter Alive Father (Age 63) of prosta te cancer Mother Alive Sister 1 colon cancer Sister 2 Alive Son 1 Alive Son 2 Alive Social History Tobacco Use Types Packs/Day Years Used Date Smoking Tobacco: Never Smokeless Tobacco: Never Tobacco Cessation:Counseling Given: Not Answered Alcohol Use Standard Drinks/Week Comments Yes 0 (1 standard drink = 0.6 oz pure alcohol) infrequently has wine, less than 1 drink a month Comments No Sex and Gender Information Value Date Recorded Sex Assigned at Female 05/29/2023 3:22 PM CDT Legal Sex Female 7:32 PM CDT Gender Identity Not on file Sexual Orientation Not on file Last Filed Vital Signs Vital Sign Reading Time Taken Comments Blood Pressure 152/77 06/04/2023 12:15 PM CDT Pulse 57 06/04/2023 12:15 PM CDT Temperature 36.2 C (97.2 F) 06/04/2023 12:15 PM CDT Respiratory Rate 16 06/04/2023 12:15 PM CDT Oxygen Saturation 98% 06/04/2023 12:15 PM CDT Inhaled Oxygen Concentration - - Weight 68 kg (149 lb 14.6 oz) 06/04/2023 9:20 AM CDT Height 147.3 cm (4' 10 ) 06/04/2023 9:20 AM CDT Body Mass Index 31.33 06/04/2023 9:20 AM CDT Plan of Treatment Health Maintenance Due Date Last Done Comments DTaP, Tdap and Td Vaccines (1 - Tdap) 1964 Annual Medicare Wellness Visit 2009 Dexa Scan (General) 2009 Zoster Vaccines (2 of 3) 10/26/2015 08/31/2015 RSV Immunization or 60+ Years (1 - 1-dose 75+ series) 2019 COVID-19 Vaccine (4 - season) 2024 09/26/2021, 02/01/2021, 01/02/2021 Influenza Adult (#1) 2024 09/12/2021, 08/30/2020, 10/27/2019, Additional history exists Pneumococcal Vaccine: 65+ Years Completed 04/29/2022, 09/25/2016 Meningococcal B Vaccine Aged Out No l onger eligible based on patient's age to complete this topic Meningococcal Vaccine Aged Out No erica loreta eligible based on patient's age to complete this topic RSV Immunizations Under 20 Months Aged Out No longer eligible based on patient's age to complete this topic Insurance [employer] Care Teams Clay Transporter Relationship Specialty Start Date End Date None, Provider, PCP - General UNKNOWN PHYSICIAN SPECIALTY 05/29/23 Tino Klein MD [address] [place] [address] INTERNAL MEDICINE 05/25/23
== END 2024-12-21 12:29 | disposition home or self-care (01) ==
LOC: CHSIMG 12:32
PROVIDERS: PCP Internal Medicine; Visit Provider Internal Medicine
DX: S52.502A Unspecified fracture of the lower end of left radius, initial encounter for closed fracture (principal)
CPT/HCPCS: 73110

== ENCOUNTER 2025-01-06 13:35 | Outpatient (CLI) | payer MEDICARE, SELFPAY ==
--- NOTE | ~2025-01-06 | XR_ITS ---
Left wrist Technique: PA, oblique, lateral, and ulnar deviation views were obtained. Clinical History: Fracture follow-up COMPARISON: 12/21/2024 Findings: Fracture the radial styloid process is nearly completely healed. No new fracture or disloca tion. Stable degenerative change at the first CMC joint. Joint spaces are preserved. Soft tissues are unremarkable. Impression: Radial styloid fracture is nearly completely healed. Advanced degenerative change first CMC joint. Reviewed, dictated and finalized at location . Impression: Radial styloid fracture is nearly completely healed. Advanced degenerative change first CMC joint.
--- OUTSIDE RECORDS SUMMARY | 2025-01-06 13:38 | XMS_ITS | Clinical Summary ---
Author Organization [facility] Address [address] [place] [address] Care Team Providers Care Air Analysis Technician Name Role Phone Tino Klein MD Unavailable [phone] None, Provider MD Primary Care Provider [...] complete this topic Insurance [employer] Care Teams Air Analysis Technician Relationship Specialty Start Date End Date None, Provider, PCP - General UNKNOWN PHYSICIAN SPECIALTY 05/29/23 Tino Klein MD [address] [place] [address] INTERNAL MEDICINE 05/25/23
== END 2025-01-06 13:36 | disposition home or self-care (01) ==
PROVIDERS: PCP Internal Medicine; Visit Provider Internal Medicine
DX: S52.512D Displaced fracture of left radial styloid process, subsequent encounter for closed fracture with routine healing (principal)
CPT/HCPCS: 73110

== ENCOUNTER 2025-01-23 11:53 | Outpatient (CLI) | payer MEDICARE, SELFPAY ==
--- OUTSIDE RECORDS SUMMARY | 2025-01-23 13:16 | XMS_ITS | Clinical Summary ---
Author Organization [facility] Address [address] [place] [address] Care Team Providers Care Disc Pad Knockout Worker Name Role Phone Tino Klein MD Unavailable [phone] None, Provider MD Primary Care Provider [...] complete this topic Insurance [employer] Care Teams Disc Pad Knockout Worker Relationship Specialty Start Date End Date None, Provider, PCP - General UNKNOWN PHYSICIAN SPECIALTY 05/29/23 Tino Klein MD [address] [place] [address] INTERNAL MEDICINE 05/25/23
== END 2025-01-23 11:54 | disposition home or self-care (01) ==
LOC: CHSLAB 11:54
PROVIDERS: PCP Internal Medicine; Visit Provider Urology
DX: N30.10 Interstitial cystitis (chronic) without hematuria (principal)
CPT/HCPCS: 87086

== ENCOUNTER 2025-01-30 01:15 | Day surgery (SDC) | payer MEDICARE, SELFPAY ==
--- NOTE | 2025-01-23 09:25 | PC.NURSE ---
Report to the Outpatient Waiting Room, entrance under the green pavilion located off [facility], at time ___9 AM____ on date __01/30/25 . Planned Procedure Time: _11 AM .? Time changes happen often and if your time is changed the preop area will call you the afternoon before. - You and your visitor will be asked to self-screen and do not enter if you have any COVID symptoms. Please call surgeon if you need to reschedule. - A mask is optional within the hospital at this time. Patients may have clear liquids (water, carbonated beverages, clear teas, apple juice) until 3 hours prior to surgery ( 8 AM)with a maximum of 20 ounces. - No food from midnight until time of surgery and no smoking, or chewing tobacco (or any form of nicotine). No chewing gum, candy or mints. Take only the following medications with a SIP of water on the morning of surgery: ALPRAZOLAM IF NEEDED, FLUOXETINE DO NOT STOP ANY OF YOUR OTHER PRESCRIPTION MEDICATIONS PRIOR TO SURGERY EXCEPT THE FOLLOWING Hold all vitamins and supplements for 3 days per anesthesiologist. Medications to discontinue per physician PT STATES HOLD ASPIRIN 7 DAYS PRE OP PER DR CHESTER Date to take last dose___01/22/25 Please no make-up, nail german, hairspray, perfume, deodorant, or body powder the day of surgery.? No jewelry (including any body piercings) or valuables the day of surgery, leave them at home.? Please take a shower or bath the night before, or the morning of, surgery with an antibacterial soap.? Wear comfortable, loose fitting clothing.? Children are encouraged to wear pajamas. - Jewelry must be removed prior to entering the operating room.? Rings and piercings that are not removed may be cut off. - The hospital will not accept responsibility for valuables.? - Please leave all valuables, including medications, at home the day of surgery. If you are going home after surgery, a licensed tilt tray driver must drive you home.? - NO public transportation without another adult if you receive anesthesia. - We recommend that an adult stay with you for 24 hours following discharge. - We also recommend that you do not drive, make important decision, drink alcoholic beverages, or take any drugs that were not prescribed by your health care provider for at least 24 hours after your discharge time. For Pediatric surgeries, we recommend two adults accompany the child home. Follow any additional instructions given to you from your surgeon. Telephone instructions given to ___PATIENT and asked if any additional questions and then verbalized understanding. Patient advised to call surgeon office or pre surgery nurse liaison [phone] if any additional questions.
[2025-01-23 09:41] VITALS: BMI 33.3
--- NOTE | 2025-01-29 10:32 | PM.IMHP ---
H&P: HPI History of Present Illness Date/Time: 01/29/25 10:32 Chief Complaint: Hunner Ulcer Narrative: recurrent Hunner ulcer Review of Systems Review of Systems: All systems reviewed & are unremarkable except as noted in HPI and below PMFSH Past Medical History Medical History CVA (cerebral vascular accident) 2000 Bladder cancer HTN (hypertension) BONITA (obstructive sleep apnea) Obesity Social History Social History Smoking status: Never smoker Alcohol intake: current Substance use: never Living arrangements: with family Additional living arrangements comments: HUSB Spiritual care concerns: No Meds Home Medications and Allergies Home Medications ?Medication ?Instructions ?Recorded ?Confirmed ?Type alendronate 70 mg tablet 70 mg PO MONTHLY 07/14/23 01/23/25 History alprazolam 1 mg tablet 1 mg PO BID PRN Anxiety 07/14/23 01/23/25 History aspirin 325 mg tablet 325 mg PO DAILY PRN Headache 07/14/23 01/23/25 History acetaminophen 500 mg capsule 500 mg PO Q6H PRN Pain 12/07/23 01/23/25 History amitriptyline 10 mg tablet 10 mg PO HS 12/07/23 01/23/25 History mirabegron 25 mg tablet,extended 25 mg PO DAILY 08/08/24 01/23/25 History release 24 hr (Myrbetriq) tramadol 50 mg tablet 50 mg PO Q6H PRN pain #20 tabs 08/12/24 01/23/25 Rx fluoxetine 20 mg capsule 20 mg PO DAILY 01/23/25 01/23/25 History Allergies Allergy/AdvReac Type Severity Reaction Status Date / Time latex Allergy Itching, Verified 01/23/25 09:24 HIVES Exam Narrative: NAD normal breathing Assessment and Plan Assessment and plan (1) Hunner's ulcer: Code(s): 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
--- OUTSIDE RECORDS SUMMARY | 2025-01-30 01:18 | XMS_ITS | Clinical Summary ---
Author Organization [facility] Address [address] [place] [address] Care Team Providers Care Steam Box Operator Name Role Phone Tino Klein MD Unavailable [phone] None, Provider MD Primary Care Provider [...] Done Comments DTaP, Tdap and Td Vaccines ( 1 - Tdap) 1964 Annual Medicare Wellness Visit 2009 Dexa Scan (General) 2009 Zoster Vaccines (2 of 3) 10/26/2015 08/31/2015 RSV Immunization or 60+ Years (1 - 1-dose 75+ series) 2019 COVID-19 Vaccine ( - 2023-2 5 season) 2024 09/26/2021, 02/01/2021, 01/02/2021 Pneumococcal Vaccine: 65+ Years Completed 04/29/2022, 09/25/2016 Meningococcal B Vaccine Aged Out No l onger eligible based on patient's age to complete this topic Meningococcal Vaccine Aged Out No erica loreta eligible based on patient's age to complete this topic RSV Immunizations Under 20 Months Aged Out No longer eligible b ased on patient's age to complete this topic Insurance [employer] Care Teams Steam Box Operator Relationship Specialty Start Date End Date None, Provider, PCP - General UNKNOWN PHYSICIAN SPECIALTY 05/29/23 Tino Klein MD [address] [place] [address] INTERNAL MEDICINE 05/25/23
--- NOTE | 2025-01-30 07:15 | WPDHPUPDATE1 ---
History and Physical Update Update Date/Time: 01/30/25 07:15 History and Physical has been reviewed, including an updated exam of the patient. There are NO changes in the patient's condition. Risks, benefits, and alternatives have been discussed and questions answered. Patient agrees to proceed with procedure.
[2025-01-30 08:55] VITALS: BP 150/75; PULSE 78; RESP 18; TEMP 36.3; O2SAT 99
[2025-01-30] MEDS: LACTATED RINGERS 1,000 ML 30 ML IV CONT (09:22)
[2025-01-30 10:25] VITALS: BP 148/71; PULSE 73; RESP 14
--- NOTE | 2025-01-30 10:32 | WPDANESEPPF ---
Anes - Initial Pre Proc Eval Procedure: Operation Date: 01/30/25 11:00 Proposed Procedures p Cystoscopy, Bladder Biopsy with Steroid Injection - Brandon Royal MD Date/Time: 01/30/25 10:32 Surgeon: Brandon Royal MD Pre Op Diagnosis: hunner's ulcer Patient Data Age: 79 Gender: F Height: 1.47 m Weight: 72.5 kg Last Vital Signs Temp 97.3 F L 01/30/25 08:55 Pulse 78 01/30/25 08:55 Resp 18 01/30/25 08:55 BP 150/75 H 01/30/25 08:55 Pulse Ox 99 01/30/25 08:55 O2 Del Method Room Air 01/30/25 08:55 Allergies Allergy/AdvReac Type Severity Reaction Status Date / Time latex Allergy Itching, Verified 01/30/25 09:02 HIVES Home Medications ?Medication ?Instructions ?Recorded ?Confirmed ?Type alendronate 70 mg tablet 70 mg PO MONTHLY 07/14/23 01/23/25 History alprazolam 1 mg tablet 1 mg PO BID PRN Anxiety 07/14/23 01/23/25 History aspirin 325 mg tablet 325 mg PO DAILY PRN Headache 07/14/23 01/30/25 History acetaminophen 500 mg capsule 500 mg PO Q6H PRN Pain 12/07/23 01/23/25 History amitriptyline 10 mg tablet 10 mg PO HS 12/07/23 01/30/25 History tramadol 50 mg tablet 50 mg PO Q6H PRN pain #20 tabs 08/12/24 01/23/25 Rx fluoxetine 20 mg capsule 20 mg PO DAILY 01/23/25 01/23/25 History tramadol 50 mg tablet 50 mg PO Q6H PRN pain #20 tabs 01/30/25 Rx Patient hx anesthesia problems: none Family hx anesthesia problems: none Results Review: All pre-operative results and documents have been reviewed as part of the pre-operative evaluation. [facility] Past Medical History Medical History CVA (cerebral vascular accident) 2000 Bladder cancer HTN (hypertension) BONITA (obstructive sleep apnea) Obesity Social History Social History Smoking status: Never smoker Alcohol intake: current Substance use: never Living arrangements: with family Additional living arrangements comments: HUSB Spiritual care concerns: No Anes - Eval Final PreProcedure Day of Procedure 01/30/25 10:32 Patient weight: obese Lungs: normal air movement Airway: Mallampati scale class II and special considerations (Upper and lower dentures. ) Neurological: alert and oriented Last oral intake: >/= 8 hours ASA classification: III Emergent: no Anesthetic plan: proceed Anesthesia type and monitoring: general GIVS and standard monitoring Results Review: All pre-operative results and documents have been reviewed as part of the pre-operative evaluation. Obesity, hx of BONITA mostly compliant w CPAP. Informed Consent: The patient's anesthetic plan and its attendant risks and benefits were discussed with the patient/family/POA. Questions were solicited and answers provided to the satisfaction of the patient/family/POA.
[2025-01-30] MEDS: ceFAZolin 2 GM/D5W 50 ML 2 GM/50 ML BAG IVPB (10:36)
[2025-01-30] MEDS: LIDOCAINE 2% GEL UROJET 10 ML PKG MUCOUS MEM (10:49)
[2025-01-30] MEDS: TRIAMCINOLONE ACET INJ 40 MG/ML VIAL 200 MG IM (10:50)
--- NOTE | 2025-01-30 10:54 | P.OP_ITS ---
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 She has not had recurrence of bladder cancer in some time. She is here today for injection for recurrent Hunner's ulcer Findings Hunner's ulcer posterior wall of the bladder Description of Procedure She was correctly identified. Informed consent obtained. For the operating room. She was given monitored anesthesia care. Uro jet was applied. She was given appropriate perioperative antibiotics. Time-out performed. I examined the bladder. 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 Right ureteral orifices easily identifiable. Left ureteral orifice is not identifiable. On the posterior wall the bladder she had area of Hunner's ulceration. No tumors or suggestions of bladder cancer in the bladder. I biopsied the lesion on the posterior wall. I then injected Kenalog 2 mg total a concentration of 40 mg per mL. I injected throughout the bladder the subQ of the ileal layer. I fulgurated the injection sites as well as the site of ulcer. There was no bleeding under low insufflation pressures. Her bl adder was drained. She was awakened transferred to PACU stable Estimated Blood Loss 0 Drains No Packing No Pathology Yes (Bladder biopsy) Complications None Disposition PACU
[2025-01-30 10:55] VITALS: BP 105/43; PULSE 79; RESP 14; O2SAT 95
[2025-01-30 11:25] VITALS: BP 160/66; PULSE 71; RESP 14
[2025-01-30 11:55] VITALS: BP 176/72; PULSE 64; RESP 14
[2025-01-30] MEDS: oxyCODONE HCL (*CRX) 5 MG TAB IR PO (12:01)
== END 2025-01-30 12:35 | disposition home or self-care (01) ==
PROVIDERS: PCP Internal Medicine; Visit Provider Urology
PROC: 0TBB8ZX Excision of Bladder, Via Natural or Artificial Opening Endoscopic, Diagnostic (ICD-10-PCS; CPT 52204; principal; 2025-01-30 11:00)
DX: N30.10 Interstitial cystitis (chronic) without hematuria (principal); I10 Essential (primary) hypertension; G47.33 Obstructive sleep apnea (adult) (pediatric); E66.9 Obesity, unspecified; Z68.33 Body mass index [BMI] 33.0-33.9, adult; Z79.83 Long term (current) use of bisphosphonates; Z79.82 Long term (current) use of aspirin; Z79.891 Long term (current) use of opiate analgesic; Z99.89 Dependence on other enabling machines and devices; Z85.51 Personal history of malignant neoplasm of bladder; Z86.79 Personal history of other diseases of the circulatory system
CPT/HCPCS: 52204; 52283; 88305; A9270; J0690; J2003; J2704; J3010; J3301; J7120

== ENCOUNTER 2025-06-23 10:25 | Outpatient (CLI) | payer MEDICARE, SELFPAY ==
[2025-06-23 10:38] LABS: Hematocrit 42.3 % (35.0-42.0); Hemoglobin 13.3 g/dL (11.7-13.8); Mean Corpuscular HGB Conc 31.4 g/dL (32-36); Mean Corpuscular Hemoglobin 30.7 pg (27.0-31.0); Mean Corpuscular Volume 97.7 fL (78.0-102.0); Platelet Count Result 265 K/mm3 (150-420); Red Blood Count 4.33 M/mm3 (4.20-5.40); White Blood Count 7.8 K/mm3 (4.8-10.8)
[2025-06-23 11:30] LABS: Alanine Aminotransferase 23 U/L (6-35); Albumin Level 4.2 g/dL (3.5-5.1); Alkaline Phosphatase 82 U/L (38-126); Anion Gap 6 mmol/L (4-12); Aspartate Amino Transferase 29 U/L (14-36); Bilirubin,Total 0.5 mg/dL (0.2-1.3); Blood Urea Nitrogen 13 mg/dL (7-17); CRP < 0.5 mg/dL (<1.0); Calcium 10.5 mg/dL (8.4-10.2); Carbon Dioxide 29 mmol/L (22-30); Chloride 108 mmol/L (98-107); Estimated Glomerular Filt Rate > 60; Glucose 118 mg/dL (65-110); Osmolality Calculated 297 mOsm/kg (285-295); Potassium 4.3 mmol/L (3.4-5.0); Sodium 143 mmol/L (137-145); Total Protein 7.1 g/dL (6.3-8.2)
[2025-06-23 15:13] LABS: Creatine Kinase 476 U/L (30-135)
== END 2025-06-23 10:26 | disposition home or self-care (01) ==
LOC: CHSLAB 10:28
PROVIDERS: PCP Internal Medicine; Visit Provider Internal Medicine
DX: I73.9 Peripheral vascular disease, unspecified (principal); R25.2 Cramp and spasm; R74.8 Abnormal levels of other serum enzymes; M25.50 Pain in unspecified joint
CPT/HCPCS: 36415; 80053; 82550; 85027; 86140

== ENCOUNTER 2025-06-29 12:07 | Outpatient (CLI) | payer MEDICARE, SELFPAY ==
--- NOTE | ~2025-06-29 | US_ITS ---
US arterial ankle brachial ind INDICATION: Leg cramps TECHNIQUE: Segmental pressures and plethysmographic and Doppler waveforms of the brachial and lower extremity arteries were obtained. COMPARISON: None. FINDINGS: Right and left brachial artery pressures of 145 mm Hg and 143 mm Hg, respectively, are concordant (normal difference <= 30 mmHg). The right ankle-brachial index (BERNADETTE) is 1.21 (normal >= 0.9-1.0). The right great toe-brachial index (TBI) is 0.98 (normal >= 0.60). The left BERNADETTE is 1.31. The left TBI is 0.91. IMPRESSION: 1. Normal ankle-brachial indices. Reviewed, dictated and finalized at location O.
--- OUTSIDE RECORDS SUMMARY | 2025-06-29 12:28 | XMS_ITS | Clinical Summary ---
Author Organization [facility] Address [address] [place] [address] Care Team Providers Care Campus Rep Name Role Phone Tino Klein MD Unavailable [phone] None, Provider MD Primary Care Provider [...] Active Problems No known active problems Immunizations Immunization Administration Dates Next Due MODERNA COVID-19 (12+) [...] 9:20 AM CDT Height 147.3 cm (4' 10) 06/04/2023 9:20 AM CDT Body Mass Index 31.33 06/04/2023 9:20 AM CDT Plan of Treatment Health Maintenance Due Date Last Done Comments DTaP, Tdap and Td Vaccines ( 1 - Tdap) 1964 Annual Medicare Wellness Visit 2009 Dexa Scan (General) 2009 Zoster Vaccines (2 of 3) 10/26/2015 08/31/2015 RSV Immunization or 60+ Years (1 - 1-dose 75+ series) 2019 COVID-19 Vaccine (4 - 2024-2 6 season) 2025 09/26/2021, 02/01/2021, 01/02/2021 Pneumococcal Vaccine: 50+ Years Completed 04/29/2022, 09/25/2016 Meningococcal B Vaccine Aged Out No l onger eligible based on patient's age to complete this topic Meningococcal Vaccine Aged Out No erica loreta eligible based on patient's age to complete this topic RSV Immunizations Under 20 Months Aged Out No longer eligible b ased on patient's age to complete this topic Insurance [employer] Care Teams Campus Rep Relationship Specialty Start Date End Date None, Provider, PCP - General UNKNOWN PHYSICIAN SPECIALTY 05/29/23 Tino Klein MD [address] [place] [address] INTERNAL MEDICINE 05/25/23
== END 2025-06-29 12:08 | disposition home or self-care (01) ==
PROVIDERS: PCP Internal Medicine; Visit Provider Internal Medicine
DX: R25.2 Cramp and spasm (principal); I73.9 Peripheral vascular disease, unspecified; M25.50 Pain in unspecified joint
CPT/HCPCS: 93922

== ENCOUNTER 2025-09-30 11:05 | Outpatient (CLI) | payer MEDICARE, SELFPAY ==
--- OUTSIDE RECORDS SUMMARY | 2025-09-30 11:09 | XMS_ITS | Clinical Summary ---
Author Organization [facility] Address [address] [place] [address] Care Team Providers Care Faculty I On Call Medical Assistant Name Role Phone Tino Klein MD Unavailable [phone] None, Provider MD Primary Care Provider [...] series) 2019 COVID-19 Vaccine (4 - season) 2025 09/26/2021, 02/01/2021, 01/02/2021 Influenza Adult (#1) 2025 09/12/2021, 08/30/2020, 10/27/2019, Additional history exists Pneumococcal Vaccine: 50+ Years Completed 04/29/2022, 09/25/2016 Hepatitis A Vaccines Aged Out No long er eligible based on patient's age to complete this topic Meningococcal B Vaccine Aged Out No l onger eligible based on patient's age to complete this topic Meningococcal Vaccine Aged Out No erica loreta eligible based on patient's age to complete this topic RSV Immunizations Under 20 Months Aged Out No longer eligible based on patient's age to complete this topic Insurance [employer] MEDICARE Care Teams Faculty I On Call Medical Assistant Relationship Specialty Start Date End Date None, Provider, PCP - General UNKNOWN PHYSICIAN SPECIALTY 05/29/23 Tino Klein MD [address] [place] [id number] INTERNAL MEDICINE 05/25/23
== END 2025-09-30 11:06 | disposition home or self-care (01) ==
LOC: CHSLAB 11:07
PROVIDERS: PCP Urology; Visit Provider Urology
DX: N30.10 Interstitial cystitis (chronic) without hematuria (principal)
CPT/HCPCS: 87086